=== PATIENT | male | born 1990 | race African-American/Black ===

== ENCOUNTER 2016-08-10 11:28 | Emergency (ER) | payer MEDICAID, OTHER ==
[~2016-08-10] VITALS: Ht 167.6 cm; Wt 61.0 kg
[~2016-08-10 11:28] MED LIST: AMOX125S13; HYDR-523; MOTRIN
[2016-08-10] MEDS ORDERED: IBUPROFEN 600MG TABLET PO ONE (12:30)
[2016-08-10 13:04] VITALS: BP 118/72
== END 2016-08-10 13:34 | disposition home or self-care (01) ==
LOC: ER 12:58
DX: M79.672 Pain in left foot (principal); L98.8 Other specified disorders of the skin and subcutaneous tissue; F12.10 Cannabis abuse, uncomplicated
CPT/HCPCS: 73630; 99284

== ENCOUNTER 2016-09-02 21:40 | Emergency (ER) | payer MEDICAID ==
[~2016-09-02] VITALS: Ht 167.6 cm; Wt 63.0 kg
[2016-09-03 03:04] VITALS: BP 124/74
== END 2016-09-03 04:49 | disposition home or self-care (01) ==
LOC: ER 09-03 04:46
DX: S01.512A Laceration without foreign body of oral cavity, initial encounter (principal); F12.10 Cannabis abuse, uncomplicated; X58.XXXA Exposure to other specified factors, initial encounter; Y93.67 Activity, basketball; Y92.89 Other specified places as the place of occurrence of the external cause; Y99.8 Other external cause status
CPT/HCPCS: 99283

== ENCOUNTER 2019-09-16 09:43 | Emergency (ER) | payer MEDICAID ==
[~2019-09-16] VITALS: Ht 167.6 cm; Wt 61.0 kg
[2019-09-16 09:46] VITALS: BP 131/83
[2019-09-16] MEDS ORDERED: AZITHROMYCIN 500 MG TABLET PO ONE (10:15)
[2019-09-16] MEDS ORDERED: CEFTRIAXONE SODIUM 250 MG/VIAL IM ONE (10:15)
[2019-09-16 10:55] LABS: CLARITY URINE TURBID (CLEAR); COLOR URINE DK YELLOW (YELLOW); KETONES URINE TRACE (NEGATIVE); LEUKOCYTE ESTERASE URINE 3+ (NEGATIVE); NITRITE URINE NEGATIVE (NEGATIVE); OCCULT BLOOD URINE 1+ (NEGATIVE); PROTEIN URINE 2+ (NEGATIVE); SPECIFIC GRAVITY URINE 1.027 (1.005-1.030)
[2019-09-18 04:07] LABS: NEISSERIA GONORRHOEAE NAA Positive (Negative)
== END 2019-09-16 10:44 | disposition home or self-care (01) ==
LOC: ER 09:43
DX: R36.9 Urethral discharge, unspecified (principal); Z72.51 High risk heterosexual behavior
CPT/HCPCS: 81003; 87086; 87491; 87591; 96372; 99283; J0696

== ENCOUNTER 2020-01-14 07:35 | Emergency (ER) | payer MEDICAID ==
[~2020-01-14] VITALS: Ht 167.6 cm; Wt 61.0 kg
[2020-01-14] MEDS ORDERED: IBUPROFEN 600MG TABLET PO ONE (08:15)
[2020-01-14 09:59] VITALS: BP 118/77
== END 2020-01-14 10:00 | disposition home or self-care (01) ==
LOC: ER 07:35
DX: S83.92XA Sprain of unspecified site of left knee, initial encounter (principal); F12.10 Cannabis abuse, uncomplicated; Y93.61 Activity, american tackle football; Y92.89 Other specified places as the place of occurrence of the external cause; Y99.8 Other external cause status
CPT/HCPCS: 73562; 99283

== ENCOUNTER 2021-02-24 07:47 | Emergency (ER) | payer MEDICAID ==
[~2021-02-24] VITALS: Ht 170.2 cm; Wt 62.0 kg
[2021-02-24] MEDS ORDERED: IBUPROFEN 600MG TABLET PO ONE (09:00)
[2021-02-24] MEDS ORDERED: IBUP-2029 MT (10:31)
[2021-02-24 12:05] VITALS: BP 117/81
== END 2021-02-24 12:08 | disposition home or self-care (01) ==
LOC: ER 07:47
DX: M79.662 Pain in left lower leg (principal); F12.10 Cannabis abuse, uncomplicated; X58.XXXA Exposure to other specified factors, initial encounter; Y93.89 Activity, other specified; Y92.89 Other specified places as the place of occurrence of the external cause; Y99.8 Other external cause status
CPT/HCPCS: 93971; 99284